=== PATIENT | male | born 1950 | race Caucasian/White ===

== ENCOUNTER 2021-07-23 14:26 | Outpatient (CLI) | payer MEDICARE | END 2021-07-23 14:27 | disposition home or self-care (01) | LOC: TBSIIMAG 14:26 | PROVIDERS: ATTEND Neurological Surgery | DX: M48.061 Spinal stenosis, lumbar region without neurogenic claudication (principal); M47.816 Spondylosis without myelopathy or radiculopathy, lumbar region | CPT/HCPCS: 72110 ==